=== PATIENT | male | born 1995 | race Caucasian/White ===

== ENCOUNTER 2018-08-24 13:54 | Outpatient (CLI) | payer BC ==
--- NOTE | 2018-08-24 15:47 | RAD ---
RIGHT FOOT 3 VIEWS: Date: 08/24/18 No fracture or periosteal reaction seen. No bony destruction evident. All bones are normal in appeara nce. IMPRESSION: No significant finding. POS: HOME
== END 2018-08-24 13:55 | disposition home or self-care (01) ==
LOC: BURRAD 13:54
PROVIDERS: ATTEND Family Medicine
DX: M79.671 Pain in right foot (principal)